=== PATIENT | male | born 1975 | race Caucasian/White ===

== ENCOUNTER 2023-12-07 07:47 | Outpatient (OUT) | payer OTHER, SELFPAY ==
[2023-12-07 08:17] LABS: Basophils Percent Auto 0.4 % (0.2-2.0); Eosinophils Absolute Auto 0.1 10^3/uL (0.0-0.7); Eosinophils Percent Auto 1.9 % (0.9-7.0); Hematocrit 42.3 % (42.0-54.0); Hemoglobin 14.4 g/dL (14.0-18.0); Immature Granulocytes Abs Auto 0.02 10^3/uL (0.00-0.03); Immature Granulocytes Pct Auto 0.3 % (0.0-0.5); Lymphocytes Absolute Auto 1.2 10^3/uL (1.2-3.8); Lymphocytes Percent Auto 15.4 % (20.5-60.0); Mean Corpuscular Hemoglobin 29.2 pg (25.9-34.0); Mean Corpuscular Volume 85.8 fL (80.0-94.0); Mean Platelet Volume 9.1 fL (9.5-13.5); Monocytes Absolute Auto 0.3 10^3/uL (0.3-0.8); Monocytes Percent Auto 3.7 % (1.7-12.0); Neutrophils Absolute Auto 5.9 10^3/uL (1.4-6.5); Neutrophils Percent Auto 78.3 % (43.0-75.0); Platelet Count 210 10^3/uL (150-450); Red Blood Count 4.93 10^6/uL (4.70-6.10); Red Cell Distribution Width 12.8 % (11.0-15.0); White Blood Count 7.5 10^3/uL (4.0-11.0)
[2023-12-07 11:19] LABS: Estimated Average Glucose 105 mg/dL; Glycohemoglobin A1C 5.3 % (4.5-6.2)
[2023-12-07 13:15] LABS: Prostate Specific Antigen Scrn 0.31 ng/mL (<=4.00)
[2023-12-07 13:19] LABS: Alanine Aminotransferase 30 U/L (16-63); Albumin Level 3.6 g/dL (3.4-5.0); Alkaline Phosphatase 63 U/L (46-116); Anion Gap 9.9; Aspartate Amino Transferase 19 U/L (15-37); BUN Creatinine Ratio 12.4; Bilirubin Total 0.5 mg/dL (0.2-1.0); Calcium 9.1 mg/dL (8.5-10.1); Carbon Dioxide 30.4 mmol/L (21.0-32.0); Chloride 103 mmol/L (98-107); Cholesterol 145 mg/dL (<=200); Estimated GFR (African America >60 (>=60); Estimated GFR (Non-African Ame >60 (>=60); Free T3 2.99 pg/mL (2.18-3.98); Globulin 3.6 g/dL; Glucose 98 mg/dL (74-106); HDL Cholesterol 48 mg/dL (40-60); Potassium 4.3 mmol/L (3.5-5.1); Sodium 139 mmol/L (136-145); Thyroid Stimulating Hormone 0.469 uIU/mL (0.358-3.740); Total Protein 7.2 g/dL (6.4-8.2); Triglycerides 60 mg/dL (<=150)
[2023-12-08 12:10] LABS: Insulin 16.9 uIU/mL (2.6-24.9)
== END 2023-12-07 07:48 | disposition home or self-care (01) ==
LOC: LAB 07:49
PROVIDERS: PCP Family Medicine; Visit Provider Family Medicine
DX: Z00.00 Encounter for general adult medical examination without abnormal findings (principal); R73.9 Hyperglycemia, unspecified; N50.89 Other specified disorders of the male genital organs; R53.83 Other fatigue; Z12.5 Encounter for screening for malignant neoplasm of prostate
CPT/HCPCS: 36415; 80053; 80061; 83036; 83525; 84436; 84443; 84481; 85025; G0103

== ENCOUNTER 2023-12-11 10:08 | Outpatient (REF) | payer OTHER, SELFPAY ==
[2023-12-11 11:13] LABS: Occult Blood Negative
== END 2023-12-11 10:09 | disposition home or self-care (01) ==
LOC: LAB 10:08
PROVIDERS: PCP Family Medicine; Visit Provider Family Medicine
DX: Z00.00 Encounter for general adult medical examination without abnormal findings (principal)
CPT/HCPCS: G0328

== ENCOUNTER 2025-06-07 16:21 | Outpatient (OUT) | payer OTHER, SELFPAY ==
--- OUTSIDE RECORDS SUMMARY | 2024-03-31 09:30 | XMS_ITS ---
Author Organization [facility] in [place] Address [address] [place] [address] Care Team Providers Care Pitch Gatherer Name Role Phone ROYER ALEJO, ELI Primary Care Provider [phone] MARIELOS PALACIOS Unavailable [phone] Allergies Allergen (clinical drug ingredient) Drug/Non Drug Allergy documented on EMR Reaction Allergy Type Onset Date Status Vicodin Vomiting Drug Allergy Active REASON FOR VISIT c/o sore throat x 2 days Medications Medication SIG (Take, Route, Frequency, Duration) Notes Start Date End Date Status Simvastatin 20 mg TAKE ONE TABLET BY M OUTH EVERY NIGHT for 30 Active ARIPiprazole 5 MG TAKE ONE TABLET BY M OUTH ONCE DAILY AT BEDTIME Oral for 30 Days Active Doxepin HCl 10 MG 1-2 capsule at bedti me Orally Once a day for 30 12/02/2023 Active Amoxicillin-Pot Clavulanate 875-125 MG 1 tablet Orally every 12 hrs for 10 03/31/2024 Active Social History Tobacco Use: Social History Observation Description Date Details (start date - stop date) Former Smoker NA - 03/17/2022 Tobacco Use/Smoking Question Answer Notes Patient is a former smoker When did you stop smoking? 03/17/2022 How long has it been since you last smoked? 1-5 years AUDIT-C (Standard) Question Answer Notes Did you have a drink containing alcohol in the p ast year? No Points 0 Interpretation Negative Vital Signs Weight 233.4 lbs 03/31/2024 Height 71 in 03/31/2024 Blood pressure systolic 164 mm Hg 03/31/20 24 Blood pressure diastolic 104 mm Hg 024 Temperature 99.7 degrees Fahrenheit 03/31/20 BMI 32.55 kg/m2 03/31/2024 Encounters Encounter Location Date Provider Diagnosis [facility] [address] [facility] [place] [place] [address] 03/31/2024 MARIELOS PALACIOS Pharyngitis J02.9 Assessments Encounter Date Diagnosis (ICD Code) Assessment Notes Treatment Notes Treatment Clinical Notes Section Notes 03/31/2024 Pharyngitis (ICD-10 - J02.9) defers strep testing fu if not improving Plan Of Treatment Medication Medication Name Sig Start Date Stop Date Notes Amoxicillin-Pot Clavulanate 875-125 MG 1 tablet Orally every 12 hrs for 10 03/31/2024 Treatment Notes Assessment Notes Pharyngitis defers strep testing fu if not improving Next Appt Details Follow Up: prn, Reason: Progress Notes * Torito BULL ADOB: (48 yo M)Acc No.[id number]:03/31/2024 Progress Note Patient: Torito JENSEN Provider: Veda Palacios CNP :1975 A ge:48 Y S ex:Male Date:03/31/2024 Address:[facility] [address], [id number] Pcp:Marcos Bishop MD Check In:01:12 PM ESTCheck O ut:01:33 PM EST Subjective: * Chief Complaints: * C /o sore throat x 2 days * HPI: G eneral: bad sore throat for few days some headaches no nausea felt feverish no runny nose, cough. * ROS: G eneral/Constitutional: Fever a dmits, low grade. H eadache d enies. W eight loss d enies. O phthalmologic: Discharge d enies. E ye Pain d enies. I tching and redness d enies. E NT: Nasal discharge d enies. N randell congestion d enies.?Sore throat a dmits. C ardiovascular: Chest tightness/ heavy pressure d enies. R apid heart rate d enies. S welling of extremities d enies. C hest pain d enies. ? R espiratory: Productive cough d enies. C hest pain d enies. C ough d enies. S hortness of breath d enies. W heezing d enies. ? G astrointestinal: Abdominal pain d enies. C onstipation d enies. D ecreased appetite d enies. D iarrhea d enies. N ausea d enies. V omiting?denies. G enitourinary: Urinary incontinence d enies. P ainful urination d enies. M usculoskeletal: Back pain d enies. N aylin pain d enies. M uscle aches d enies. S kin: Rash d enies. S kin lesion(s) d enies. ? 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 M other: alive 90 yrs, dementia. B rother(s): alive. 4 brother(s) . . * Social History: T obacco Use: T obacco Use/Smoking P atient is a f ormer smoker W hen did you stop smoking? 0 03/17/2022 H ow long has it been since you last smoked??1-5 years D rug/Alcohol: A JOSEPH-C (Standard) D id you have a drink containing alcohol in the past year? N o P oints 0 I nterpretation N egative * Medications: T akingARIPiprazole 5 MG Tablet TAKE ONE TABLET BY MOUTH ONCE DAILY AT BEDTIME Oral Doxepin HCl 10 MG Capsule 1-2 capsule at bedtime Orally Once a day Simvastatin 20 mg Tablet TAKE ONE TABLET BY MOUTH EVERY NIGHT Taking ARIPiprazole 5 MG Tablet TAKE ONE TABLET BY MOUTH ONCE DAILY AT BEDTIME Oral Taking Doxepin HCl 10 MG Capsule 1-2 capsule at bedtime Orally Once a day Taking Simvastatin 20 mg Tablet TAKE ONE TABLET BY MOUTH EVERY NIGHT DiscontinuedPercocet(oxyCODONE-Acetaminophen) 5-325 MG Tablet 1 to 2 Orally every 6 hrs Medication List reviewed and reconciled with the patientDiscontinued Percocet(oxyCODONE-Acetaminophen) 5-325 MG Tablet 1 to 2 Orally every 6 hrs Medication List reviewed and reconciled with the patient * Allergies: V icodin: Vomiting - Side Effects - Criticality Highno[Allergies Verified] Objective: * Vitals: W t:233.4lbs, Ht: 71 in, BP:164/104mm Hg, Temp:99.7F, BMI:32.55Index, Ht-cm: 180.34 cm, Wt-k.87 kg. * Examination: G eneral Examinations: GENERAL APPEARANCE: a lert and oriented, i n no acute distress. EYES: c onjunctiva normal, sclera non-icteric. EARS: e xternal auditory canals are patent. Tympanic membranes are pearly prescott and mobile. NOSE: n ormal external appearance. THROAT: erythema. LYMPH NODES: c ervical nodes enlarged, nontender. LUNGS: s cattered rhonci. CARDIO: r egular rate and rhythm, S1, S2 normal. MUSCULOSKELETAL G ait and station normal. SKIN: w arm and dry. Assessment: * Assessment: 1. P elo - J02.9 (Primary) Plan: * Treatment: * Procedure Codes: * Preventive Medicine: Screenings/Counseling: B [place] ACTION PLAN Above Normal BMI Follow-up D ietary management education, guidance, and counseling See treatment section of progress note for complete details of management plan. * Follow Up: p rn * * Sign off status: Completed Visit Status: C HK (Check Out) true * Provider: Veda Palacios, BODY ENGINEER Date: 0 03/31/2024 Generated for Marlee ballard/Scout/Xu on: 0 06/07/2025 04:25 PM EDT History and Physical Notes * Examination Category Sub-Category Detail Notes Category Not es General Examinations GENERAL APPEARANCE: alert a nd oriented, in no acute distress EYES: conjunctiva normal, sclera non-icteric EARS: external auditory ca nals are patent. Tympanic membranes are pearly prescott and mobile NOSE: normal external appe arance THROAT: erythema CARDIO: regular rate and rhy thm, S1, S2 normal LUNGS: scattered rhonci ABDOMEN: SKIN: warm and dry BACK: MUSCULOSKELETAL: Gait and station nor mal LYMPH NODES: cervical nodes enlar ged, nontender
--- OUTSIDE RECORDS SUMMARY | 2024-03-31 09:35 | XMS_ITS ---
Author Organization [facility] in [place] Address [address] [place] [address] Care Team Providers Care Mortgage Coordinator Name Role Phone ROYER ALEJO, ELI Primary Care Provider [phone] MARIELOS EVANS Unavailable [phone] Encounters Encounter Location Date Provider Diagnosis [id number] [place] [address] 03/31/2024 MARIELOS EVANS Plan Of Treatment No Information Progress Notes * Torito BULL ADOB: (48 yo M)Acc No.[id number]:03/31/2024 Patient: Torito JENSEN :1975 A ge:48 Y S ex:Male Address:[facility] [address] [place], [address] * true * Date: Generated for Marlee ballard/Scout/eTransmitting on: 0 06/07/2025 04:25 PM EDT
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
--- OUTSIDE RECORDS SUMMARY | 2025-06-07 16:25 | XMS_ITS | Clinical Summary ---
Author Organization [facility] Address [address] [place] [place] [address] Care Team Providers Care Hot Mill Shearer Name Role Phone Unavailable Primary Care Provider Unavailabl e Allergies Active Allergy Reactions Criticality Noted Date Comments Hydrocodone-Acetaminophen Nausea And Vomiting Low 0 02/16/2018 Oxycodone 08/28/2023 Medications ARIPiprazole (Abilify) 10 MG tablet Take 10 mg by mouth at bedtime. 2023 Active cetirizine (ZyrTEC ALLERGY) 10 MG tablet 1 (one) time each day at the same time. Active Cipro 500 MG tablet every 12 (twelve) hours. 07/07/2023 Active Docusate Sodium (DSS) 100 MG capsule 1 (one) time each day at the same time. Active DULoxetine (Cymbalta) [address] capsule Take 120 mg by mouth in the morning. Active latanoprost (Xalatan) 0.005 % ophthalmic solution INSTILL 1 DROP INTO RIGHT EYE AT BEDTIME 07/06/2023 Active gabapentin (Neurontin) 600 MG tablet every 12 (twelve) hours. 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 Social History Tobacco Use Types Packs/Day Years Used Date Smoking Tobacco: Former Cigarettes Passive Smoke Exposure: Past Smokeless Tobacco: Never Tobacco Cessation:Counseling Given: Yes Sex and Gender Information Value Date Recorded Sex Assigned at Not on file Legal Sex Male 6:58 PM EDT Gender Identity Not on file Sexual Orientation Not on file Last Filed Vital Signs Vital Sign Reading Time Taken Comments Blood Pressure - - Pulse - - Temperature - - Respiratory Rate - - Oxygen Saturation - - Inhaled Oxygen Concentration - - Weight - - Height 180.3 cm (5' 11 ) 01/13/2018 12:00 PM EST Body Mass Index - - Plan of Treatment Health Maintenance Due Date Last Done Comments CT Colonography 1975 Colonoscopy 1975 Colorectal Cancer Screening 1975 FIT-DNA 1975 FIT 1975 FOBT 1975 Sigmoidoscopy 1975 Influenza Vaccine (#1) 2025
[2025-06-07 16:41] LABS: Hematocrit 38.2 % (42.0-54.0); Hemoglobin 13.5 g/dL (14.0-18.0); Immature Granulocytes Abs Auto 0.03 10^3/uL (0.00-0.03); Immature Granulocytes Pct Auto 0.3 % (0.0-0.5); Lymphocytes Absolute Auto 1.8 10^3/uL (1.2-3.8); Mean Corpuscular HGB Conc 35.3 g/dL (29.9-35.2); Mean Corpuscular Hemoglobin 30.3 pg (25.9-34.0); Mean Corpuscular Volume 85.8 fL (80.0-94.0); Platelet Count 185 10^3/uL (150-450); Red Blood Count 4.45 10^6/uL (4.70-6.10); White Blood Count 8.7 10^3/uL (4.0-11.0)
[2025-06-07 17:20] LABS: Alanine Aminotransferase 33 U/L (16-63); Albumin Globulin Ratio 1.3; Albumin Level 4.0 g/dL (3.4-5.0); Alkaline Phosphatase 63 U/L (46-116); Anion Gap 12.3; Aspartate Amino Transferase 23 U/L (15-37); Blood Urea Nitrogen 16.0 mg/dL (7.0-18.0); Calcium 9.2 mg/dL (8.5-10.1); Carbon Dioxide 29.7 mmol/L (21.0-32.0); Chloride 105 mmol/L (98-107); Cholesterol 147 mg/dL (<=200); Estimated GFR (African America >60 (>=60 mL/min/1.73m^2); Estimated GFR (Non-African Ame >60 (>=60 mL/min/1.73m^2); Free T3 3.29 pg/mL (2.18-3.98); Globulin 3.0 g/dL; Glucose 98 mg/dL (74-106); HDL Cholesterol 63 mg/dL (40-60); Potassium 4.0 mmol/L (3.5-5.1); Sodium 143 mmol/L (136-145); Thyroid Stimulating Hormone 2.202 uIU/mL (0.358-3.740); Total Protein 7.0 g/dL (6.4-8.2); Triglycerides 72 mg/dL (<=150); VLDL CHOLESTEROL 14.4 mg/dL
== END 2025-06-07 16:22 | disposition home or self-care (01) ==
LOC: LAB 16:23
PROVIDERS: PCP Family Medicine; Visit Provider Family Medicine
DX: Z00.00 Encounter for general adult medical examination without abnormal findings (principal); I72.9 Aneurysm of unspecified site; E78.5 Hyperlipidemia, unspecified; R53.83 Other fatigue; Z12.5 Encounter for screening for malignant neoplasm of prostate
CPT/HCPCS: 36415; 80053; 80061; 83036; 83525; 84436; 84443; 84481; 85025; G0103

== ENCOUNTER 2025-06-27 08:14 | Outpatient (OUT) | payer OTHER, SELFPAY ==
--- OUTSIDE RECORDS SUMMARY | 2025-06-07 11:45 | XMS_ITS ---
Author Organization The [facility] in [place] Address [address] [place] [address] Care Team Providers Care Brass Wind Instrument Maker Name Role Phone ELI LINTON MD Primary Care Provider Eli Linton Unavailable [phone] Allergies Allergen (clinical drug ingredient) Drug/Non Drug [...] Status W/U Status Risk Notes Problem Aneurysm (80154058) Aneurysm (I72.9) Active confirmed Vital Signs Weight 235 lbs 06/07/2025 Height 71 in 06/07/2025 Blood pressure systolic 140 mm Hg 06/07/20 25 Blood pressure diastolic 84 mm Hg 025 BMI 32.77 kg/m2 06/07/2025 Encounters Encounter Location Date Provider Diagnosis [facility] [address] [facility] [place] [address] 06/07/2025 Eli Linton Well adult Z00.00 an [...] * Torito BULL ADOB: (49 yo M)Acc No.[id number]:06/07/2025 Progress Note Patient: Torito JENSEN Provider: Michelle Linton ([facility])MD :1975 A ge:49 Y S ex:Male Date:06/07/2025 [facility] Pcp:ELI LINTON MD Check In:03:26 PM ESTCheck O ut:04:08 PM EST Subjective: * Chief Complaints: * Y early * HPI: G eneral: + FH aortic - thoracic aneurysm - needs chest ct wtihout contrast +FH CAD. D epression Screening: PHQ-2 (2015 Edition) L ittle interest or pleasure in doing things??More than half the days F eeling down, depressed, or hopeless? S everal days T otal Score 3 D epression Screening: PHQ-9 L ittle interest or pleasure in doing things?More than half the days F eeling down, depressed, or hopeless S everal days T rouble falling or staying asleep, or sleeping too much N early every day F eeling tired or having little energy S ever P oor appetite or overeating N ot at all F eeling bad about yourself or that you are a failure, or have let yourself or your family down S ever T rouble concentrating on things, such as reading the newspaper or watching television S ever M oving or speaking so slowly that other people could have noticed; or the opposite, being so fidgety or restless that you have been moving around a lot more than usual N ot at all T houghts that you would be better off or of hurting yourself in some way N ot at all T otal Score 9 I nterpretation M ild Depression * ROS: E ENT: hearing changes d [...] S wollen joints d enies, denies. * Active Problem List E78.00 Pure hypercholestero lemia, unspecified Modified On:05/01/2023U Status:confirmed M17.12 Unilateral primary o steoarthritis, left knee Modified On:05/01/2023U Status:confirmed F51.01 Primary insomnia Modified On:12/02/2023U Status:confirmed F41.9 Anxiety disorder, un specified Modified On:05/01/2023U Status:confirmed F32.A Depression, unspecif ied Modified On:06/02/2023W/U Status:confirmed M54.16 Radiculopathy, lumba r region Modified On:05/01/2023W/U Status:confirmed J21.9 Acute bronchiolitis Modified On:09/28/2023W/U Status:confirmed I72.9 Aneurysm Modified On:06/07/2025/U Status:confirmed * Medical History: * Surgical History: [...] bedtime Orally Once a day Simvastatin 20 MG Tablet 1 tablet in the evening Orally Once a day Taking ARIPiprazole 5 MG Tablet TAKE ONE TABLET BY MOUTH ONCE DAILY AT BEDTIME Oral Taking Doxepin HCl 10 MG Capsule 1-2 capsule at bedtime Orally Once a day Taking Simvastatin 20 MG Tablet 1 tablet in the evening Orally Once a day DiscontinuedAmoxicillin-Pot Clavulanate 875-125 MG Tablet 1 tablet Orally every 12 hrs Medication List reviewed and reconciled with the patientDiscontinued Amoxicillin-Pot Clavulanate 875-125 MG Tablet 1 tablet Orally every 12 hrs Medication List reviewed and reconciled with the patient * Allergies: V icodin: Vomiting - Side Effects - Criticality Highno[Allergies Verified] Objective: * Vitals: W t:235lbs, Ht: 71 [...] FH aneurysm - need ct chest * Procedure Codes: * Preventive Medicine: Screenings/Counseling: B KS ACTION PLAN Above Normal BMI Follow-up D ietary management education, guidance, and counseling * * Sign off status: Completed Visit Status: C HK (Check Out) true * Provider: Michelle Linton ([facility])MD Date: 0 06/07/2025 Generated for Juan Carlosi nellie/Scout/eTransmitting on: 06/27/2025 08:23 AM EDT History and Physical Notes * HPI (History of Present Illness) Category Sub-Category Detail Notes Category Not es Depression Screening PHQ-9 Little inte rest or pleasure in doing things: More than half the days Feeling down, depressed, or hopeless: Se veral days Trouble falling or staying asleep, or sl eeping too much: Nearly every day Feeling tired or having little energy: S everal days Poor appetite or overeating: Not at all Feeling bad about yourself o r that you are a failure, or have let yourself or your family down: Several days Trouble concentrating on thi ngs, such as reading the newspaper or watching television: Several days Moving or speaking so slowly that other people could have noticed; or the opposite, being so fidgety or restless that you have been moving around a lot more than usual: Not at all Thoughts that you would be b pablo off or of hurting yourself in some way: Not at all Total Score: 9 Interpretation: Mild Depression General + FH aortic - thoracic aneurysm - needs chest ct wtihout contrast +FH CAD Depression Screening PHQ-2 (2015 Edition) Little interest or pleasure in doing things?: More than half the days Feeling down, depressed, or hopeless?: S everal days Total Score: 3 Examination Category Sub-Category Detail Notes Category Not [...]
--- OUTSIDE RECORDS SUMMARY | 2025-06-07 14:22 | XMS_ITS ---
Author Organization The [facility] in [place] Address [address] [place] [address] Care Team Providers Care Animal Taxonomist Name Role Phone ELI LINTON MD Primary Care Provider Eli Linton Unavailable [phone] REASON FOR VISIT Lab Results Encounters Encounter Location Date Provider Diagnosis [facility] [place] [address] [place] [address] 06/07/2025 Eli Linton Plan Of Treatment No Information Progress Notes * Torito BULL ADOB: (49 yo M)Acc No.[id number]:06/07/2025 Patient: Torito JENSEN :1975 A ge:49 Y S ex:Male Address:[facility] [place], [address] * true * Date: Generated for Marlee ballard/Scout/eTransmitting on: 0 06/27/2025 08:23 AM EDT
--- OUTSIDE RECORDS SUMMARY | 2025-06-13 12:22 | XMS_ITS ---
Author Organization [facility] in [place] Address [address] [place] [address] Care Team Providers Care Chemical Sales Representative Name Role Phone ELI LINTON MD Primary Care Provider [phone] Eli Linton Unavailable [phone] denied Encounters Encounter Location Date Provider Diagnosis [facility] [address] [facility] [place] [address] 06/13/2025 Eli Linton Aneurysm I72.9 Assessments Encounter Date Diagnosis (ICD Code) Assessment Notes Treatment Notes Treatment Clinical Notes Section Notes 06/13/2025 Aneurysm (ICD-10 - I72.9) Plan Of Treatment Pending Test Test Name Order Date US aorta 06/13/2025 Progress Notes * Torito BULL ADOB: (49 yo M)Acc No.[id number]:06/13/2025 Patient: Torito JENSEN :1975 A ge:49 Y S ex:Male Address:[facility] [place] [place], [address] Subjective: * Chief Complaints: * C T denied * Medical History: * Surgical History: * Hospitalization/Major Diagno stic Procedure: * Medications: Objective: * Vitals: * Physical Examination: Assessment: * Assessment: 1. A neurysm - I72.9 (Primary) Plan: * Treatment: * Procedure Codes: * true * Date: Generated for Printi ng/Faxing/eTransmitting on: 0 06/27/2025 08:23 AM EDT
--- NOTE | 2025-06-27 08:17 | US_ITS ---
The [address] [address] Patient Name: SILVIA BULL MRN: [id number] date: 1975 Sex: M Assigned Patient Location: US Current Patient Location: US Accession/Order Number: [id number] Exam Date: 06/27/2025 09:15 Report Date: 06/27/2025 09:19 At the request of: HAM LINTON MD Procedure: US aorta ULTRASOUND OF THE ABDOMINAL AORTA COMPARISON: None CLINICAL DATA: Family history of aneurysm. Tobacco use. Real-time ultrasound evaluation of the abdominal aorta was performed. Proximally, the aortic diameter measures 3.1 x 2.6 cm. Through the midsegment, the aorta measures 2.9 x 2.6 cm . Distally, the aorta measures 2.7 x 3.3 cm. Atherosclerotic plaque is noted. The bifurcation is identified and the left iliac artery is slightly larger than right measuring 19 mm in diameter. No periaortic fluid. US/US aorta IMPRESSION: ATHEROSCLEROTIC DISEASE AND ECTATIC AORTA, DESCRIBED. Impression dictated by: Shayla Marinelli M.D. 06/27/2025 9:19 AM Dictation Location: [place] [address] Electronically authenticated by: [id number] Y Date: 06/27/2025 09:19
--- OUTSIDE RECORDS SUMMARY | 2025-06-27 08:23 | XMS_ITS | Clinical Summary ---
Author Organization [facility] Address [address], [address] [place] [address] Care Team Providers Care Bleach Tester Name Role Phone Unavailable Primary Care Provider Unavailabl e Allergies Active Allergy Reactions Criticality Noted Date Comments Hydrocodone-Acetaminophen Nausea And Vomiting Low 0 02/16/2018 Medications oxyCODONE-aceta minophen (PERCOCET) 5-325 MG per tabletIndicatio ns:Pain Take 2 tablets by mouth every 4 hours as needed. Indications: Pain Active cetirizine (ZYRTEC) 10 MG tablet Take 10 mg by mouth daily. Active OYSTER SHELL CALCIUM by Does not apply route. Active QUEtiapine Fumarate (SEROQUEL PO) Take by mouth Active pregabalin (LYRICA) 150 MG capsule Take 150 mg by mouth 2 times daily. Active Hospital, Clinic, or Other Facility Administered Medication Ordered Dose Route Frequency Start Date End Date Status bupivacaine (MARCAINE) 0.25 % injection 5 mg 5 mg IX ONCE 04/15/2016 Active Active Problems Problem Noted Date Diagnosed Date Type III open displaced pilon fracture of right tibia 03/21/2013 Overview (08/31/2016): Replacing Inactive Diagnoses Closed fracture of lateral portion of left tibia l plateau 03/21/2013 Social History Tobacco Use Types Packs/Day Years Used Date Smoking Tobacco: Every Day Cigarettes Smokeless Tobacco: Never Alcohol Use Standard Drinks/Week Comments Yes 20 (1 standard drink = 0.6 oz pu re alcohol) Sex and Gender Information Value Date Recorded Sex Assigned at Not on file Legal Sex Male 9:32 AM EDT Gender Identity Not on file Sexual Orientation Not on file Last Filed Vital Signs Vital Sign Reading Time Taken Comments Blood Pressure 99/62 03/24/2013 12:00 PM EDT Pulse 108 03/24/2013 12:00 PM EDT Temperature 37 C (98.6 F) 03/24/2013 12:00 PM EDT Respiratory Rate 19 03/24/2013 12:00 PM EDT Oxygen Saturation 98% 03/24/2013 12:00 PM EDT Inhaled Oxygen Concentration - - Weight 97 kg (213 lb 13.5 oz) 02/16/2018 3:08 PM EDT Height 180 cm (5' 10.87 ) 02/16/2018 3:08 PM EDT Body Mass Index 29.94 02/16/2018 3:08 PM EDT Plan of Treatment Not on file Advance Directives * Full Code (Latest Code Status on File) Date Activated Date Inactivated Comments 03/21/2013 4:47 PM 03/24/2013 5:59 PM
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
== END 2025-06-27 08:15 | disposition home or self-care (01) ==
LOC: US 08:14
PROVIDERS: PCP Family Medicine; Visit Provider Family Medicine
DX: I71.40 Abdominal aortic aneurysm, without rupture, unspecified (principal); Z72.0 Tobacco use
CPT/HCPCS: 76706